=== PATIENT | female | born 1955 | race Caucasian/White ===

== ENCOUNTER 2022-10-27 17:37 | Emergency (ER) | payer BC ==
[~2022-10-27] VITALS: Ht 170.2 cm; Wt 81.6 kg
[2022-10-27 17:51] VITALS: BP_SYST 194
--- NOTE | 2022-10-27 18:10 | NUR ---
Patient to ER bed 02 to gown for evaluation. Side rails up.
--- NOTE | 2022-10-27 18:14 | NUR ---
PT BIB SELF FROM HOME C/O HTN 211/112, (NORMAL IS 145/80 PER PT REPORT). PT DENIES SANCHEZ, N/V. PT STATES HAS LT KNEE PAIN FROM MECHANICAL FALL 12/19 WITH SWELLING. PT STATES IS COMPLIANT WITH MEDICATIONS 10MG ATORAVASTATIN, 40MG TELMISARTAN, AND 75MG PLAVIX. PT RESTING IN BED ON MONITOR WITH RAILS UP.
--- NOTE | 2022-10-27 18:30 | NUR ---
ER at bedside examining patient.
[2022-10-27] MEDS ORDERED: AMLO2.5T2 PO (19:01)
[2022-10-27 19:09] VITALS: BP_SYST 182
--- NOTE | 2022-10-27 19:12 | NUR ---
Patient given written and verbal discharge instructions and verbalizes understanding. ER MD discussed with patient the results and treatment provided. Patient in stable condition. ID arm band removed. Rx of AMLODIPINE given. Patient educated on HTN and to follow up with PMD. Pain Scale 7. Opportunity for questions provided and answered. Medication side effect fact sheet provided.
== END 2022-10-27 19:09 | disposition home or self-care (01) ==
LOC: SED 17:37
DX: I10 Essential (primary) hypertension (principal); Z79.899 Other long term (current) drug therapy
CPT/HCPCS: 99283